=== PATIENT | female | born 1960 | race Caucasian/White ===

== ENCOUNTER 2023-04-28 12:45 | Inpatient (IN) | payer OTHER ==
[~2023-04-28] VITALS: Ht 162.6 cm; Wt 59.2 kg
[2023-04-28] MEDS ORDERED: Acetaminophen 500 MG TAB PO PRN (15:00)
[2023-04-28] MEDS ORDERED: NS 1,000 ML IV SCH (15:00)
[2023-04-28] MEDS ORDERED: Ondansetron 4 MG/2 ML VIAL IV PRN ×2 (15:00→18:45)
--- NOTE | 2023-04-28 16:51 | NUR ---
CALLED AND NOTIFIED OF CONSULT. ORDERS RECEIVED FOR EGD TOMORROW AT 1230. SCHEDULING CALLED AND NOTIFIED. STATED THEY WILL GET IT SCHEDULED.
[2023-04-28 18:17] VITALS: BP 139/86; PULSE 117; TEMP 98.8
[2023-04-28 18:24] VITALS: BP_SYST 139
--- NOTE | 2023-04-28 19:00 | NUR ---
182-PT ADMITTED FROM [facility]. PT TRANSFERED TO BED. PT ORIENTED TO ROOM AND FLOOR. CALL LIGHT GIVEN AND ISNTRUCTED TO CALL WITH ALL NEEDS.
[2023-04-28 19:28] VITALS: BP 118/75; PULSE 90; TEMP 99.4
[2023-04-28 19:38] LABS: BASO % 0.2 % (0.0-2.0); GRAN # 4.4 K/mm3 (1.4-6.5); GRAN % 75.4 % (42.2-75.2); HEMOGLOBIN 10.1 g/dl (12.5-16.0); LYMPH % 16.6 % (20.0-51.0); MEAN CELL VOLUME 90 fl (80.0-100.0); MEAN CORPUSCULAR HEMOGLOBIN 32 pg (27-31); MEAN CORPUSCULAR HGB CONC 35 g/dl (33.0-37.0); MEAN PLATELET VOLUME 11.2 fl (7.4-10.4); MONO # 0.4 K/mm3 (0.1-0.6); MONO % 7.5 % (1.7-9.3); PLATELET COUNT 167 K/mm3 (130-400); RED BLOOD COUNT 3.18 M/mm3 (4.10-5.30); REDCELL DISTRIBUTION WIDTH-CV 13.6 % (11.5-14.5)
[2023-04-28 19:44] LABS: HEMATOCRIT 28.6 % (37.0-47.0)
[2023-04-28 19:59] LABS: ALANINE AMINOTRANSFERASE 23 U/L (0-55); ALBUMIN 3.1 gm/dL (3.4-4.8); ALKALINE PHOSPHATASE 54 U/L (40-150); ANION GAP 8 mmol/L (7-16); AST,SGOT 23 U/L (5-34); BLOOD UREA NITROGEN 40 mg/dL (10-20); CALCIUM 8.3 mg/dL (8.4-10.2); CARBON DIOXIDE 21 mmol/L (23-31); CHLORIDE 109 mmol/L (98-107); CREATININE, serum 0.71 mg/dL (0.57-1.11); GLUCOSE 113 mg/dL (70-99); MAGNESIUM 1.9 mg/dL (1.6-2.6); POTASSIUM 4.1 mmol/L (3.5-4.5); SODIUM 138 mmol/L (136-145); TOTAL PROTEIN 5.5 gm/dL (6.2-8.1)
[2023-04-28 20:00] LABS: BILIRUBIN,TOTAL < 0.1 mg/dL (0.2-1.2)
[2023-04-28 20:30] VITALS: BP_SYST 108
--- NOTE | 2023-04-28 20:30 | NUR ---
UPON SHIFT ASSESSMENT, ZENOBIA WAS ASLEEP IN BED AND EASILY AROUSED. SHE IS AXO X 4 AND SEEMS ANXIOUS. TELE EXHIBITS NS TACHY. VS ARE WNL. SHE DENIES PAIN OR NEEDS AT THIS TIME. CALL LIGHT WITHIN REACH.
[2023-04-28] MEDS ORDERED: Iohexol 300 - 100 ML VIAL IV ONE (20:54)
[2023-04-28] MEDS ORDERED: Pantoprazole 40 MG in NS 10 ML IV SCH (21:00)
[2023-04-28 23:52] VITALS: BP 108/63; PULSE 119; TEMP 98.6
[2023-04-29] VITALS (13 sets, daily range): BP systolic 96–118; BP diastolic 55–67; PULSE 77–103; TEMP 97.7–99.6
[2023-04-29 07:42] LABS: BASO % 0.2 % (0.0-2.0); EOS % 0.2 % (0.0-4.0); GRAN # 3.8 K/mm3 (1.4-6.5); GRAN % 69.1 % (42.2-75.2); LYMPH # 1.1 K/mm3 (1.2-3.4); LYMPH % 20.4 % (20.0-51.0); MEAN CELL VOLUME 91 fl (80.0-100.0); MEAN CORPUSCULAR HGB CONC 35 g/dl (33.0-37.0); MEAN PLATELET VOLUME 10.6 fl (7.4-10.4); MONO # 0.5 K/mm3 (0.1-0.6); MONO % 9.6 % (1.7-9.3); PLATELET COUNT 191 K/mm3 (130-400); RED BLOOD COUNT 2.54 M/mm3 (4.10-5.30); REDCELL DISTRIBUTION WIDTH-CV 13.7 % (11.5-14.5)
[2023-04-29 07:45] LABS: HEMATOCRIT 23.1 % (37.0-47.0); MEAN CORPUSCULAR HEMOGLOBIN 31 pg (27-31)
[2023-04-29 08:08] LABS: CALCIUM 7.7 mg/dL (8.4-10.2); CREATININE, serum 0.57 mg/dL (0.57-1.11); MAGNESIUM 1.9 mg/dL (1.6-2.6); POTASSIUM 3.8 mmol/L (3.5-4.5)
--- NOTE | 2023-04-29 09:49 | NUR ---
Melting Supervisor attended clinical rounds with the team. Patient to have EGD today at 1230 with possible biopsy. SW met with patient following rounds to discuss discharge planning. Patient lives in [place], [place] with her , Joseph (ph#[phone]) and sees Dr. Santos for primary care. Patient is not on any regular prescription medications, but uses the [facility] in [place] for any needed medications. Patient reported no issues affording medications when she needs them. Patient does not use any DME and is independent with [employer]. Patient is employed at [employer] in [place] and reported she is able to drive herself to medical appointments. Patient does not have DPOA-HC and was not interested in completing one at this time. Patient plans to return home at time of discharge. Discharge Plan: Home
--- NOTE | 2023-04-29 10:00 | NUR ---
PT RESTING IN BED WITH NO PAIN AT THIS TIME. STEADY GAIT TO BATHROOM, PT PASSING GAS, SLIGHT WEAKNESS, PT REMAINS NPO. WILL CONTINUE TO MONITOR.
[2023-04-29] MEDS ORDERED: LR 1,000 ML IV SCH (11:00)
[2023-04-29] MEDS ORDERED: Lidocaine PF 2% (20 MG/ML) 5 ML VIAL ONE (12:03)
--- NOTE | 2023-04-29 12:58 | NUR ---
D: Initial visit: Shift Supervisor [employer] stopped by room on rounds. Pt was resting and content with nurse in the room. A: Pt was very positive and we had a great conversation. [place] [facility]. No needs right now. P: Shift Supervisor [employer] informed pt that if she needed anything from the debone processing supervisor area to let her nurse know. Shift Supervisor [employer] will follow up as needed.
--- NOTE | 2023-04-29 19:31 | NUR ---
report received from ALEC Varela. care assumed at this time. [facility] to mixing picker tender pt at 1920, pt paperwork and belongings given to EMS. pt alert and oriented x4, denies pain at this time. pt has no further needs, questions, or concerns at this time. ambulated with steady gait to EMS stretcher. report given to nurse at 1925 and transfer center notified of departure.
== END 2023-04-29 19:20 | disposition short-term general hospital (02) | DRG 375 ==
LOC: SURG 12:45
PROVIDERS: ADMIT Internal Medicine
PROC: 0DB68ZX Excision of Stomach, Via Natural or Artificial Opening Endoscopic, Diagnostic (ICD-10-PCS; principal; 2023-04-28)
PROC: 0W3P8ZZ Control Bleeding in Gastrointestinal Tract, Via Natural or Artificial Opening Endoscopic (ICD-10-PCS; 2023-04-28)
DX: C16.9 Malignant neoplasm of stomach, unspecified (principal); D62 Acute posthemorrhagic anemia
CPT/HCPCS: C9113; J2704; J7030; P9016; Q9967